=== PATIENT | male | born 1960 | race Two or more races ===

== ENCOUNTER 2022-01-23 10:19 | Day surgery (SDC) | payer OTHER ==
[~2022-01-23] VITALS: Ht 175.3 cm; Wt 128.5 kg
[2022-01-23] VITALS (12 sets, daily range): BP systolic 93–113; BP diastolic 25–78
[2022-01-23] MEDS ORDERED: METO100T14 PO (10:54)
[2022-01-23] MEDS ORDERED: ASPI-1265 PO (10:54)
[2022-01-23] MEDS ORDERED: ISOS60TA71 PO (10:54)
[2022-01-23] MEDS ORDERED: LISI20TA28 PO (10:54)
[2022-01-23] MEDS ORDERED: CHLO50TA PO (10:54)
[2022-01-23] MEDS ORDERED: ATOR40TA72 PO (10:54)
[2022-01-23] MEDS ORDERED: LORazepam 0.5 MG tablet PO PRN (10:55)
[2022-01-23] MEDS ORDERED: normal saline 1,000 ML IV SCH (10:55)
[2022-01-23] MEDS ORDERED: diphenhydrAMINE 25mg capsule PO PRN (10:55)
[2022-01-23] MEDS ORDERED: verapamil 2.5 mg/ml inj IV ONE (11:59)
[2022-01-23] MEDS ORDERED: midazolam 1 mg/ML 2ml injection ONE (11:59)
[2022-01-23] MEDS ORDERED: nitroGLYCERIN-Tridil 50MG/D5W 250 ML IV ONE (11:59)
[2022-01-23] MEDS ORDERED: LIDOcaine 1%/PF 5ML 10 MG/ML VIAL ONE (11:59)
[2022-01-23] MEDS ORDERED: heparin 1,000unit/ml 10ml vial 10 ML ONE ×2 (11:59→13:43)
[2022-01-23] MEDS ORDERED: fentaNYL/PF 50MCG/1 ML 2ML syringe ONE (11:59)
[2022-01-23] MEDS ORDERED: iohexol 350MG/ML 100ml bottle IV ONE ×2 (11:59→13:41)
[2022-01-23] MEDS ORDERED: aspirin 325mg tablet ONE (13:43)
[2022-01-23] MEDS ORDERED: clopidogrel 300mg tablet ONE (13:43)
== END 2022-01-23 19:50 | disposition home or self-care (01) ==
LOC: SSTAY O 10:19
PROVIDERS: ATTEND Student in an Organized Health Care Education/Training Program
DX: R94.39 Abnormal result of other cardiovascular function study (principal); I10 Essential (primary) hypertension; I25.10 Atherosclerotic heart disease of native coronary artery without angina pectoris; E78.5 Hyperlipidemia, unspecified; I25.82 Chronic total occlusion of coronary artery; J44.9 Chronic obstructive pulmonary disease, unspecified; G47.33 Obstructive sleep apnea (adult) (pediatric)
CPT/HCPCS: 82948; 93005; 93459; 99152; 99153; C1725; C1751; C1760; C1769; C1874; C1894; C9600; J1644; J2250; J3010; J3490; J7030; Q0163; Q9967; A4620; A5120; A6258; A6449